=== PATIENT | female | born 1970 | race American Indian/Alaskan Native ===

== ENCOUNTER 2022-01-09 13:23 | Emergency (ER) | payer MEDICAID ==
[2022-01-09] MEDS ORDERED: SODIUM CHLORIDE 0.9% 1000 ML 1,000 ML IV ONE (15:30)
--- NOTE | 2022-01-09 16:11 | Emergency Department Report ---
ED General Adult HPI - General Chief complaint: Altered Mental Status Stated complaint: DEHYDRATED/ALTERED Time Seen by Provider: 01/09/22 15:04 Source: EMS Mode of arrival: Stretcher Limitations: Other - History of Present Illness Initial comments: 51-year-old female with no significant past medical history reports to the ER today due to dehydration. Patient reports that she is under stress due to work, spouse, mother's health, and every day life stressors. Patient denies shortness of breath, chest pain, weakness, headache. Patient does report some intermittent dizziness, reports she has not been drinking a lot of water or eaten in the last few days due to stress. Patient reports no other acute symptoms at this time. Patient is alert and oriented x4. Severity scale (0 -10): 0 - Related Data Previous Rx's Medication Instructions Recorded Last Taken Type Cyclobenzaprine HCl [FLEXERIL] 10 mg PO Q8HR PRN #20 tablet 06/02/13 Unknown Rx Ibuprofen [Motrin 800 MG tab] 800 mg PO TID #20 tablet 06/02/13 Unknown Rx traMADoL [Ultram 50 MG tab] 50 mg PO Q6HR PRN #20 tablet 06/02/13 Unknown Rx HYDROcodone/APAP 5-325 [[place] 1 each PO Q6HR PRN #14 tablet 10/13/13 Unknown Rx 5/325 mg] Ibuprofen [Motrin 600 MG tab] 600 mg PO Q8H PRN #30 tablet 10/13/13 Unknown Rx Cyclobenzaprine [Flexeril 10 MG 10 mg PO TID PRN #12 tablet 04/22/16 Unknown Rx TAB] Naproxen [Naprosyn] 500 mg PO BID #30 tablet 04/22/16 Unknown Rx Allergies Allergy/AdvReac Type Severity Reaction Status Date / Time No Known Allergies Allergy Verified 10/13/13 00:34 ED Review of Systems ROS: Stated complaint: DEHYDRATED/ALTERED Other details as noted in HPI Constitutional: denies: chills, fever Eyes: denies: eye pain, eye discharge, vision change ENT: denies: ear pain, throat pain Respiratory: denies: cough, shortness of breath, wheezing Cardiovascular: denies: chest pain, palpitations Endocrine: no symptoms reported Gastrointestinal: denies: abdominal pain, nausea, diarrhea Genitourinary: denies: urgency, dysuria, discharge Musculoskeletal: denies: back pain, joint swelling, arthralgia Skin: denies: rash, lesions Neurological: denies: headache, weakness, paresthesias Psychiatric: denies: anxiety, depression Hematological/Lymphatic: denies: easy bleeding, easy bruising ED Past Medical Hx - Past Medical History Previous Medical History?: No - Surgical History Additional Surgical History: "anus surgery" - Social History Smoking Status: Never Smoker Substance Use Type: None - Medications Home Medications: Home Medications Medication Instructions Recorded Confirmed Last Taken Type Cyclobenzaprine HCl [FLEXERIL] 10 mg PO Q8HR PRN #20 tablet 06/02/13 Unknown Rx Ibuprofen [Motrin 800 MG tab] 800 mg PO TID #20 tablet 06/02/13 Unknown Rx traMADoL [Ultram 50 MG tab] 50 mg PO Q6HR PRN #20 tablet 06/02/13 Unknown Rx HYDROcodone/APAP 5-325 [[place] 1 each PO Q6HR PRN #14 tablet 10/13/13 Unknown Rx 5/325 mg] Ibuprofen [Motrin 600 MG tab] 600 mg PO Q8H PRN #30 tablet 10/13/13 Unknown Rx Cyclobenzaprine [Flexeril 10 MG 10 mg PO TID PRN #12 tablet 04/22/16 Unknown Rx TAB] Naproxen [Naprosyn] 500 mg PO BID #30 tablet 04/22/16 Unknown Rx ED Physical Exam - General Limitations: Other General appearance: alert, in no apparent distress - Head Head exam: Present: atraumatic, normocephalic - Eye Eye exam: Present: normal appearance - ENT ENT exam: Present: mucous membranes moist - Neck Neck exam: Present: normal inspection - Respiratory Respiratory exam: Present: normal lung sounds bilaterally. Absent: respiratory distress - Cardiovascular Cardiovascular Exam: Present: regular rate, normal rhythm. Absent: systolic murmur, diastolic murmur, rubs, gallop - GI/Abdominal GI/Abdominal exam: Present: soft, normal bowel sounds - Extremities Exam Extremities exam: Present: normal inspection - Back Exam Back exam: Present: normal inspection - Neurological Exam Neurological exam: Present: alert, oriented X3 - Psychiatric Psychiatric exam: Present: normal affect, normal mood - Skin Skin exam: Present: warm, dry, intact, normal color. Absent: rash ED Course Vital Signs 01/09/22 01/09/22 01/09/22 13:27 14:58 15:00 Temperature 97.3 F L Pulse Rate 99 H 61 64 Respiratory 18 11 L 17 Rate Blood Pressure 131/108 Blood Pressure 155/98 [Left] O2 Sat by Pulse 99 96 98 Oximetry 01/09/22 01/09/22 01/09/22 15:15 15:30 15:46 Temperature Pulse Rate 62 57 L 56 L Respiratory 17 20 15 Rate Blood Pressure 115/85 115/85 107/85 Blood Pressure [Left] O2 Sat by Pulse 98 99 Oximetry 01/09/22 01/09/22 01/09/22 16:00 16:16 16:55 Temperature Pulse Rate 60 59 L Respiratory 15 14 11 L Rate Blood Pressure 122/89 120/84 122/89 Blood Pressure [Left] O2 Sat by Pulse 97 94 Oximetry 01/09/22 01/09/22 01/09/22 17:00 17:16 17:30 Temperature Pulse Rate 55 L 63 Respiratory 18 13 18 Rate Blood Pressure 122/89 137/86 Blood Pressure [Left] O2 Sat by Pulse 100 98 98 Oximetry 01/09/22 01/09/22 01/09/22 17:46 18:00 18:16 Temperature Pulse Rate 62 64 65 Respiratory 13 13 13 Rate Blood Pressure 160/83 146/91 151/87 Blood Pressure [Left] O2 Sat by Pulse 96 96 97 Oximetry 01/09/22 18:30 Temperature Pulse Rate 71 Respiratory 15 Rate Blood Pressure 154/87 Blood Pressure [Left] O2 Sat by Pulse 98 Oximetry - Reevaluation(s) Reevaluation #1: 01/09/22 19:07 Patient reports feeling better after receiving 1 L of fluids as well as getting some rest here in ER department. Patient reports no acute symptoms. Patient is stable for discharge ED Medical Decision Making - Lab Data Result diagrams: 01/09/22 15:35 01/09/22 15:35 - Medical Decision Making 51-year-old female brought into the ER due to possible dehydration. Patient reports that she is understanding amount of stress due to life events such as spouse, work, mother's health condition, other life situational str essors. Patient reports no chest pain, no shortness of breath, no weakness. Patient does report intermittent dizziness today. On physical exam patient is neurologically intact. No acute findings noted on physical exam. Labs ordered. No imaging is needed at this time. No acute process noted and CMPCBC. 1 L of fluids was ordered and given to patient. UA is negative for any acute infectious process. On reexamination. Reports feeling better after receiving her fluids and having to rest here in ER department. Patient states that she knows why she is about all the stressors and we will try to decrease the stress in her life. Patient reports she does not have a primary care at this time. A referral was given to patient to follow her primary care for annual physical as well as other healthcare needs. Patient informed of symptoms are to return or get worse to report back to the ER. Patient agrees with plan of care and verbalizes understanding. Vital Signs 01/09/22 01/09/22 01/09/22 13:27 14:58 15:00 Temperature 97.3 F L Pulse Rate 99 H 61 64 Respiratory 18 11 L 17 Rate Blood Pressure 131/108 Blood Pressure 155/98 [Left] O2 Sat by Pulse 99 96 98 Oximetry 01/09/22 01/09/22 01/09/22 15:15 15:30 15:46 Temperature Pulse Rate 62 57 L 56 L Respiratory 17 20 15 Rate Blood Pressure 115/85 115/85 107/85 Blood Pressure [Left] O2 Sat by Pulse 98 99 Oximetry 01/09/22 01/09/22 01/09/22 16:00 16:16 16:55 Temperature Pulse Rate 60 59 L Respiratory 15 14 11 L Rate Blood Pressure 122/89 120/84 122/89 Blood Pressure [Left] O2 Sat by Pulse 97 94 Oximetry 01/09/22 01/09/22 01/09/22 17:00 17:16 17:30 Temperature Pulse Rate 55 L 63 Respiratory 18 13 18 Rate Blood Pressure 122/89 137/86 Blood Pressure [Left] O2 Sat by Pulse 100 98 98 Oximetry 01/09/22 01/09/22 01/09/22 17:46 18:00 18:16 Temperature Pulse Rate 62 64 65 Respiratory 13 13 13 Rate Blood Pressure 160/83 146/91 151/87 Blood Pressure [Left] O2 Sat by Pulse 96 96 97 Oximetry 01/09/22 18:30 Temperature Pulse Rate 71 Respiratory 15 Rate Blood Pressure 154/87 Blood Pressure [Left] O2 Sat by Pulse 98 Oximetry Labs 01/09/22 01/09/22 01/09/22 15:35 15:35 16:32 WBC 9.6 RBC 4.19 Hgb 10.5 Hct 33.9 MCV 81 MCH 25 L MCHC 31 RDW 16.6 H Plt Count 445 H Lymph % (Auto) 12.0 L [place] % (Auto) 4.2 Eos % (Auto) 0.3 Baso % (Auto) 0.4 Lymph # (Auto) 1.1 L [place] # (Auto) 0.4 Eos # (Auto) 0.0 Baso # (Auto) 0.0 Seg Neutrophils % 83.1 H Seg Neutrophils # 8.0 H Sodium 141 Potassium 4.0 Chloride 109.1 H Carbon Dioxide 20 L Anion Gap 16 BUN 13 Creatinine 0.7 Estimated GFR > 60 BUN/Creatinine Ratio 19 Glucose 109 H Calcium 8.8 Total Bilirubin 0.20 AST 13 ALT 13 Alkaline Phosphatase 57 Total Protein 6.9 Albumin 4.1 Albumin/Globulin Ratio 1.5 Urine Color Yellow Urine Turbidity Clear Urine pH 6.0 Ur Specific [place] 1.012 Urine Protein 30 mg/dl Urine Glucose (UA) 50 Urine Ketones 20 Urine Blood Lg Urine Nitrite Neg Urine Bilirubin Neg Urine Urobilinogen < 2.0 Ur Leukocyte Esterase Neg Urine WBC (Auto) 8.0 H Urine RBC (Auto) 67.0 U Epithel Cells (Auto) 8.0 Urine Mucus Few Critical care attestation.: If time is entered above; I have spent that time in minutes in the direct care of this critically ill patient, excluding procedure time. ED Disposition Clinical Impression: Dizziness, Dehydration Disposition: 01 HOME / SELF CARE / HOMELESS Is pt being admited?: No Condition: Stable Instructions: Dehydration, Adult, [id number], Dizziness Referrals: PRIMARY CAREMD [Primary Care Provider] - 3-5 Days ALANA LUCAS MD [Referring] - 3-5 Days ANTOINE LUCAS MD [Staff Physician] - 3-5 Days Time of Disposition: 19:12 Print Language: WALLISIAN
[2022-01-09 16:21] LABS: Basophils % (Auto) 0.4 % (0.0-1.8); Eosinophils % (Auto) 0.3 % (0.0-4.3); Hematocrit 33.9 % (30.3-42.9); Hemoglobin 10.5 gm/dl (10.1-14.3); Lymphocytes # (Auto) 1.1 K/mm3 (1.2-5.4); Mean Corpuscular HGB Conc 31 % (30-34); Mean Corpuscular Volume 81 fl (79-97); Monocytes # (Auto) 0.4 K/mm3 (0.0-0.8); Monocytes % (Auto) 4.2 % (0.0-7.3); Platelet Count 445 K/mm3 (140-440); Red Blood Count 4.19 M/mm3 (3.65-5.03); Red Cell Distribution Width 16.6 % (13.2-15.2)
[2022-01-09 16:38] LABS: Alanine Aminotransferase 13 units/L (7-56); Albumin 4.1 g/dL (3.9-5); Blood Urea Nitrogen 13 mg/dL (7-17); Calcium 8.8 mg/dL (8.4-10.2); Hemolysis Index 2
[2022-01-09 16:50] LABS: BUN/Creatinine Ratio 19
[2022-01-09 18:38] LABS: Bilirubin,Urine NEG (Negative); Blood,Urine LG (Negative); Urobilinogen,Urine < 2.0 mg/dL (<2.0)
[2022-01-09 18:47] LABS: Mucus,Urine FEW /HPF
[2022-01-09 18:48] LABS: Color,Urine Yellow (Yellow)
[2022-01-09 21:05] VITALS: BP 158/88
--- NOTE | 2022-01-10 13:22 | Electrocardiograph Report ---
[facility] Test Date: 2022-01-09 Test Time: 16:49:47 Pat Name: RASHID ALONZO Department: Room: Gender: F [facility] Internship: ADRIANA : 1970 Requested By: KARLOS FERGUSON Order Number: [id number] Reading MD: Orville Waterman Measurements Intervals [place] Rate: 53 P: 52 [place]: 144 QRS: 5 QRSD: 75 T: -12 QT: 507 QTc: 476 Interpretive Statements Sinus bradycardia Probable left atrial enlargement Nonspecific T abnormalities, diffuse leads No previous ECG available for comparison Electronically Signed On 01-10-2022 13:22:15 EDT by Orville Waterman
== END 2022-01-09 21:35 | disposition home or self-care (01) ==
LOC: ED 13:23
DX: R53.1 Weakness (principal); R42 Dizziness and giddiness; Z79.899 Other long term (current) drug therapy
CPT/HCPCS: 36415; 80053; 81001; 85025; 93005; 96360; 99284; J7030